=== PATIENT | male | born 1940 | race Two or more races ===

== ENCOUNTER 2022-07-10 19:51 | Inpatient (IN) | payer MEDICARE, OTHER ==
[~2022-07-10] VITALS: Ht 175.3 cm; Wt 59.0 kg
[2022-07-10 21:00] VITALS: BP 156/76
[2022-07-10] MEDS ORDERED: MELA3TAB41 PO (21:53)
[2022-07-10] MEDS ORDERED: PANT40TA2 PO (21:53)
[2022-07-10] MEDS ORDERED: FOLI1TAB94 PO (21:53)
[2022-07-10] MEDS ORDERED: BUPR100T5 PO (21:53)
[2022-07-10] MEDS ORDERED: CYAN1TAB17 PO (21:53)
[2022-07-10] MEDS ORDERED: TRAM50TA2 PO (21:53)
[2022-07-10] MEDS ORDERED: MAGN400T26 PO (21:53)
[2022-07-10] MEDS ORDERED: LEVO100T10 PO (21:53)
[2022-07-10] MEDS ORDERED: TUMERIC PO (21:53)
[2022-07-10] MEDS ORDERED: FINA5TAB3 PO (21:53)
[2022-07-10] MEDS ORDERED: TRAZ-182 PO (21:53)
[2022-07-10] MEDS ORDERED: PROB500T9 PO (21:53)
[2022-07-10] MEDS ORDERED: ENOX40DI SQ (21:53)
[2022-07-10] MEDS ORDERED: TERA5CAP4 PO (21:53)
[2022-07-10] MEDS ORDERED: [UNRECOGNIZED DRUG - CODE] PO (21:53)
[2022-07-10] MEDS ORDERED: CYAN-51 PO (21:53)
[2022-07-10] MEDS ORDERED: LEVE500T20 PO (21:53)
[2022-07-11 04:00] VITALS: BP 152/66
[2022-07-11 05:00] VITALS: BP 152/66
[2022-07-11] MEDS: LEVOTHYROXINE SODIUM 100 MCG TABLET PO SCH (05:50)
[2022-07-11] MEDS: PANTOPRAZOLE SODIUM 40 MG TABLET.DR PO SCH (06:05)
[2022-07-11 07:37] VITALS: BP 133/64
[2022-07-11] MEDS ORDERED: CYANOCOBALAMIN PO SCH (09:00)
[2022-07-11] MEDS ORDERED: TERAZOSIN 5 MG CAPSULE PO SCH (09:00)
[2022-07-11] MEDS ORDERED: PYRIDOXINE PO SCH (09:00)
[2022-07-11] MEDS ORDERED: buPROPion SR 100 MG TABLET.SA PO SCH ×2 (09:00)
[2022-07-11] MEDS ORDERED: [UNRECOGNIZED DRUG - OTHER] PO SCH (09:00)
[2022-07-11] MEDS ORDERED: PROBENECID 500 MG TABLET PO SCH ×2 (09:00)
[2022-07-11] MEDS: CYANOCOBALAMIN 1,000 MCG TABLET PO SCH (09:27)
[2022-07-11] MEDS: FINASTERIDE 5 MG TABLET PO SCH (09:28)
[2022-07-11] MEDS: FOLIC ACID 1 MG TABLET PO SCH (09:28)
[2022-07-11] MEDS: MAGNESIUM OXIDE 400 MG TABLET PO SCH (09:28)
[2022-07-11] MEDS: levETIRAcetam 500 MG TABLET PO SCH ×3 (09:28→16:24)
[2022-07-11] MEDS: CALCIUM CARB/VITAMIN D 600-400 MG TABLET PO SCH (09:28)
[2022-07-11] MEDS: ENOXAPARIN SODIUM 40 MG/0.4 ML DISP.SYRIN SQ SCH (09:29)
[2022-07-11] MEDS: TRAMADOL HCL 50 MG TABLET PO PRN (12:13)
[2022-07-11] MEDS ORDERED: BUPR100T13 PO (13:33)
[2022-07-11] MEDS: TERAZOSIN 5 MG CAPSULE PO SCH (14:21)
[2022-07-11 15:06] VITALS: BP 133/79
[2022-07-11] MEDS: buPROPion 100 MG TABLET PO SCH (16:24)
[2022-07-11 20:00] VITALS: BP 133/57
[2022-07-11] MEDS: MELATONIN 3 MG TABLET PO SCH (20:20)
[2022-07-11] MEDS: TRAZODONE 50 MG TABLET PO SCH (20:20)
[2022-07-11] MEDS ORDERED: TRAZODONE 50 MG TABLET PO SCH (21:00)
[2022-07-12 04:00] VITALS: BP 155/68
[2022-07-12] MEDS: LEVOTHYROXINE SODIUM 100 MCG TABLET PO SCH (06:07)
[2022-07-12] MEDS: PANTOPRAZOLE SODIUM 40 MG TABLET.DR PO SCH (06:08)
[2022-07-12 07:33] VITALS: BP 138/74
[2022-07-12 07:56] LABS: HEMATOCRIT 27.3 % (36.7-47.1); MEAN CORPUSCULAR HEMOGLOBIN 34.1 uug (23.8-33.4); MEAN CORPUSCULAR VOLUME 98.2 fL (73.0-96.2); PLATELET COUNT (AUTO) 263 K/uL (152-348)
[2022-07-12 08:12] LABS: THYROID STIMULATING HORMONE 1.073 mIU/mL (0.358-3.740)
[2022-07-12 08:27] LABS: BILIRUBIN,TOTAL 0.5 mg/dL (0.2-1.0); CREATININE 0.8 mg/dL (0.6-1.3); MAGNESIUM 1.8 mg/dL (1.8-2.4); PHOSPHOROUS 4.1 mg/dL (2.5-4.9); POTASSIUM 4.3 mmol/L (3.5-5.1); TOTAL PROTEIN, SERUM 6.4 g/dL (6.4-8.2)
[2022-07-12] MEDS: CYANOCOBALAMIN 1,000 MCG TABLET PO SCH (09:15)
[2022-07-12] MEDS: TERAZOSIN 5 MG CAPSULE PO SCH (09:15)
[2022-07-12] MEDS: FOLIC ACID 1 MG TABLET PO SCH (09:15)
[2022-07-12] MEDS: levETIRAcetam 500 MG TABLET PO SCH ×3 (09:23→16:31)
[2022-07-12] MEDS: CALCIUM CARB/VITAMIN D 600-400 MG TABLET PO SCH (09:23)
[2022-07-12] MEDS: MAGNESIUM OXIDE 400 MG TABLET PO SCH (09:24)
[2022-07-12] MEDS: FINASTERIDE 5 MG TABLET PO SCH (09:24)
[2022-07-12] MEDS: buPROPion 100 MG TABLET PO SCH ×2 (09:24→16:31)
[2022-07-12] MEDS: ENOXAPARIN SODIUM 40 MG/0.4 ML DISP.SYRIN SQ SCH (09:25)
[2022-07-12 15:04] VITALS: BP 119/59
[2022-07-12 20:00] VITALS: BP 105/56
[2022-07-12] MEDS: MELATONIN 3 MG TABLET PO SCH (20:28)
[2022-07-12] MEDS: TRAZODONE 50 MG TABLET PO SCH (20:28)
[2022-07-13] MEDS: TRAMADOL HCL 50 MG TABLET PO PRN ×2 (02:29→09:38)
[2022-07-13 04:33] VITALS: BP 111/59
[2022-07-13] MEDS: LEVOTHYROXINE SODIUM 100 MCG TABLET PO SCH (05:22)
[2022-07-13] MEDS: PANTOPRAZOLE SODIUM 40 MG TABLET.DR PO SCH (06:12)
[2022-07-13 07:31] VITALS: BP 149/65
[2022-07-13] MEDS: CALCIUM CARB/VITAMIN D 600-400 MG TABLET PO SCH (09:54)
[2022-07-13] MEDS: TERAZOSIN 5 MG CAPSULE PO SCH (09:54)
[2022-07-13] MEDS: MAGNESIUM OXIDE 400 MG TABLET PO SCH (09:54)
[2022-07-13] MEDS: FINASTERIDE 5 MG TABLET PO SCH (09:54)
[2022-07-13] MEDS: levETIRAcetam 500 MG TABLET PO SCH ×3 (09:54→16:46)
[2022-07-13] MEDS: FOLIC ACID 1 MG TABLET PO SCH (09:54)
[2022-07-13] MEDS: CYANOCOBALAMIN 1,000 MCG TABLET PO SCH (09:54)
[2022-07-13] MEDS: buPROPion 100 MG TABLET PO SCH ×2 (09:55→16:46)
[2022-07-13] MEDS: ENOXAPARIN SODIUM 40 MG/0.4 ML DISP.SYRIN SQ SCH (09:57)
[2022-07-13 15:03] VITALS: BP 146/68
[2022-07-13] MEDS: ENSURE ENLIVE (VAN) 240 ML LIQUID PO SCH (16:46)
[2022-07-13] MEDS: TRAZODONE 50 MG TABLET PO SCH (20:54)
[2022-07-13] MEDS: MELATONIN 3 MG TABLET PO SCH (20:54)
[2022-07-13 20:56] VITALS: BP 118/65
[2022-07-14 04:00] VITALS: BP 142/82
[2022-07-14] MEDS: LEVOTHYROXINE SODIUM 100 MCG TABLET PO SCH (06:05)
[2022-07-14] MEDS: PANTOPRAZOLE SODIUM 40 MG TABLET.DR PO SCH (06:05)
[2022-07-14 07:53] LABS: *BILIRUBIN,URIN NEGATIVE (NEGATIVE); *BLOOD, URINE 1+ (NEGATIVE); *CLARITY,URINE TURBID (CLEAR); *COLOR,URINE YELLOW (YELLOW); *KETONES,URINE NEGATIVE (NEGATIVE); LEUKOCYTE ESTERASE ,URINE 3+ (NEGATIVE); NITRITE, URINE POSITIVE (NEGATIVE); PH,URINE >=9.0 (5.0-8.0); UGLUCOSE NEGATIVE (NEGATIVE)
[2022-07-14 08:00] VITALS: BP 134/69
[2022-07-14] MEDS: levETIRAcetam 500 MG TABLET PO SCH ×3 (08:02→16:21)
[2022-07-14] MEDS: FINASTERIDE 5 MG TABLET PO SCH (08:03)
[2022-07-14] MEDS: CYANOCOBALAMIN 1,000 MCG TABLET PO SCH (08:03)
[2022-07-14] MEDS: ENSURE ENLIVE (VAN) 240 ML LIQUID PO SCH ×2 (08:03→16:21)
[2022-07-14] MEDS: CALCIUM CARB/VITAMIN D 600-400 MG TABLET PO SCH (08:03)
[2022-07-14] MEDS: TERAZOSIN 5 MG CAPSULE PO SCH (08:03)
[2022-07-14] MEDS: MAGNESIUM OXIDE 400 MG TABLET PO SCH (08:03)
[2022-07-14] MEDS: FOLIC ACID 1 MG TABLET PO SCH (08:03)
[2022-07-14] MEDS: PROTEIN SUPPLEMENT (PROSTAT) 30 ML LIQUID PO SCH (08:03)
[2022-07-14] MEDS: ENOXAPARIN SODIUM 40 MG/0.4 ML DISP.SYRIN SQ SCH (08:04)
[2022-07-14] MEDS: buPROPion 100 MG TABLET PO SCH ×2 (08:12→16:21)
[2022-07-14 08:35] LABS: WBC,URINE 80-100 /HPF (0-3)
[2022-07-14 08:36] LABS: BACTERIA,URINE MANY /HPF (NONE SEEN); MUCUS,URINE FEW /LPF (0-FEW); RBC,URINE 50-80 /HPF (0-3); SQUAMOUS EPITHELIAL CELL,UR NONE SEEN /HPF (NONE SEEN)
[2022-07-14 08:58] LABS: URINE AMORPHOUS PHOSPHATES MANY /HPF
[2022-07-14 08:59] LABS: TRIPLE PHOSPHATE CRYSTAL,UR MANY /HPF (NONE SEEN)
[2022-07-14 09:08] LABS: CALCIUM CARBONATE CRYSTALS,UR MODERATE /HPF (NONE SEEN)
[2022-07-14 11:43] VITALS: BP 112/52
[2022-07-14 16:53] VITALS: BP 110/62
[2022-07-14] MEDS: CEFTRIAXONE 1 G in IV DEXTROSE 5% 50 ML IV SCH (17:13)
[2022-07-14 20:01] VITALS: BP 124/64
[2022-07-14] MEDS: MELATONIN 3 MG TABLET PO SCH (20:19)
[2022-07-14] MEDS: TRAZODONE 50 MG TABLET PO SCH (20:19)
[2022-07-15 04:36] VITALS: BP 133/67
[2022-07-15] MEDS: LEVOTHYROXINE SODIUM 100 MCG TABLET PO SCH (05:38)
[2022-07-15] MEDS: PANTOPRAZOLE SODIUM 40 MG TABLET.DR PO SCH (06:02)
[2022-07-15 07:30] VITALS: BP 124/67
[2022-07-15 07:31] VITALS: BP 115/55
[2022-07-15] MEDS: TERAZOSIN 5 MG CAPSULE PO SCH (08:23)
[2022-07-15] MEDS: FINASTERIDE 5 MG TABLET PO SCH (08:23)
[2022-07-15] MEDS: FOLIC ACID 1 MG TABLET PO SCH (08:23)
[2022-07-15] MEDS: levETIRAcetam 500 MG TABLET PO SCH ×3 (08:24→16:32)
[2022-07-15] MEDS: buPROPion 100 MG TABLET PO SCH ×2 (08:24→16:33)
[2022-07-15] MEDS: CALCIUM CARB/VITAMIN D 600-400 MG TABLET PO SCH (08:24)
[2022-07-15] MEDS: MAGNESIUM OXIDE 400 MG TABLET PO SCH (08:24)
[2022-07-15] MEDS: ENOXAPARIN SODIUM 40 MG/0.4 ML DISP.SYRIN SQ SCH (08:25)
[2022-07-15] MEDS: CYANOCOBALAMIN 1,000 MCG TABLET PO SCH (08:28)
[2022-07-15] MEDS: ENSURE ENLIVE (VAN) 240 ML LIQUID PO SCH ×2 (08:29→17:14)
[2022-07-15] MEDS: PROTEIN SUPPLEMENT (PROSTAT) 30 ML LIQUID PO SCH (08:29)
[2022-07-15] MEDS ORDERED: REMEDY ESSENTIAL ZINC PASTE 113 GM TOP PRN (11:00)
[2022-07-15 16:00] VITALS: BP 109/62
[2022-07-15] MEDS: CEFTRIAXONE 1 G in IV DEXTROSE 5% 50 ML IV SCH (18:14)
[2022-07-15 20:00] VITALS: BP 136/61
[2022-07-15] MEDS: TRAZODONE 50 MG TABLET PO SCH (20:01)
[2022-07-15] MEDS: MELATONIN 3 MG TABLET PO SCH (20:01)
[2022-07-15] MEDS: REMEDY ESSENTIAL ZINC PASTE 113 GM TOP SCH (20:01)
[2022-07-16 04:00] VITALS: BP 127/64
[2022-07-16] MEDS: LEVOTHYROXINE SODIUM 100 MCG TABLET PO SCH (05:01)
[2022-07-16] MEDS: PANTOPRAZOLE SODIUM 40 MG TABLET.DR PO SCH (06:01)
[2022-07-16 07:43] VITALS: BP 136/81
[2022-07-16] MEDS: ENSURE ENLIVE (VAN) 240 ML LIQUID PO SCH ×2 (08:56→16:58)
[2022-07-16] MEDS: PROTEIN SUPPLEMENT (PROSTAT) 30 ML LIQUID PO SCH (08:57)
[2022-07-16] MEDS: CYANOCOBALAMIN 1,000 MCG TABLET PO SCH (09:21)
[2022-07-16] MEDS: FINASTERIDE 5 MG TABLET PO SCH (09:21)
[2022-07-16] MEDS: CALCIUM CARB/VITAMIN D 600-400 MG TABLET PO SCH (09:22)
[2022-07-16] MEDS: MAGNESIUM OXIDE 400 MG TABLET PO SCH (09:22)
[2022-07-16] MEDS: levETIRAcetam 500 MG TABLET PO SCH ×3 (09:22→16:57)
[2022-07-16] MEDS: REMEDY ESSENTIAL ZINC PASTE 113 GM TOP SCH ×2 (09:23→21:10)
[2022-07-16] MEDS: ENOXAPARIN SODIUM 40 MG/0.4 ML DISP.SYRIN SQ SCH (09:27)
[2022-07-16] MEDS: FOLIC ACID 1 MG TABLET PO SCH (09:28)
[2022-07-16] MEDS: buPROPion 100 MG TABLET PO SCH ×2 (09:34→16:57)
[2022-07-16 16:39] VITALS: BP 129/66
[2022-07-16] MEDS: CEFTRIAXONE 1 G in IV DEXTROSE 5% 50 ML IV SCH (18:09)
[2022-07-16 20:00] VITALS: BP 121/72
[2022-07-16] MEDS: TRAZODONE 50 MG TABLET PO SCH (21:09)
[2022-07-16] MEDS: TERAZOSIN 5 MG CAPSULE PO SCH (21:10)
[2022-07-16] MEDS: MELATONIN 3 MG TABLET PO SCH (21:10)
[2022-07-17 04:00] VITALS: BP 125/62
[2022-07-17] MEDS: LEVOTHYROXINE SODIUM 100 MCG TABLET PO SCH (05:41)
[2022-07-17] MEDS: PANTOPRAZOLE SODIUM 40 MG TABLET.DR PO SCH (06:11)
[2022-07-17 07:45] VITALS: BP 116/62
[2022-07-17] MEDS: PROTEIN SUPPLEMENT (PROSTAT) 30 ML LIQUID PO SCH (08:25)
[2022-07-17] MEDS: FOLIC ACID 1 MG TABLET PO SCH (08:25)
[2022-07-17] MEDS: levETIRAcetam 500 MG TABLET PO SCH ×3 (08:25→17:37)
[2022-07-17] MEDS: MAGNESIUM OXIDE 400 MG TABLET PO SCH (08:25)
[2022-07-17] MEDS: CALCIUM CARB/VITAMIN D 600-400 MG TABLET PO SCH (08:25)
[2022-07-17] MEDS: FINASTERIDE 5 MG TABLET PO SCH (08:25)
[2022-07-17] MEDS: ENSURE ENLIVE (VAN) 240 ML LIQUID PO SCH ×2 (08:25→17:42)
[2022-07-17] MEDS: buPROPion 100 MG TABLET PO SCH ×2 (08:25→17:37)
[2022-07-17] MEDS: CYANOCOBALAMIN 1,000 MCG TABLET PO SCH (08:25)
[2022-07-17] MEDS: ENOXAPARIN SODIUM 40 MG/0.4 ML DISP.SYRIN SQ SCH (08:27)
[2022-07-17] MEDS: REMEDY ESSENTIAL ZINC PASTE 113 GM TOP SCH ×2 (09:13→21:07)
[2022-07-17 15:46] VITALS: BP 117/67
[2022-07-17] MEDS: CEFTRIAXONE 1 G in IV DEXTROSE 5% 50 ML IV SCH (18:08)
[2022-07-17 20:00] VITALS: BP 132/67
[2022-07-17] MEDS: TRAZODONE 50 MG TABLET PO SCH (21:06)
[2022-07-17] MEDS: MELATONIN 3 MG TABLET PO SCH (21:07)
[2022-07-17] MEDS: TERAZOSIN 5 MG CAPSULE PO SCH (21:07)
[2022-07-18 04:00] VITALS: BP 145/67
[2022-07-18] MEDS: LEVOTHYROXINE SODIUM 100 MCG TABLET PO SCH (06:01)
[2022-07-18] MEDS: PANTOPRAZOLE SODIUM 40 MG TABLET.DR PO SCH (06:01)
[2022-07-18 07:58] VITALS: BP 113/63
[2022-07-18] MEDS: CYANOCOBALAMIN 1,000 MCG TABLET PO SCH (09:25)
[2022-07-18] MEDS: FINASTERIDE 5 MG TABLET PO SCH (09:25)
[2022-07-18] MEDS: MAGNESIUM OXIDE 400 MG TABLET PO SCH (09:25)
[2022-07-18] MEDS: FOLIC ACID 1 MG TABLET PO SCH (09:25)
[2022-07-18] MEDS: levETIRAcetam 500 MG TABLET PO SCH ×3 (09:26→17:02)
[2022-07-18] MEDS: buPROPion 100 MG TABLET PO SCH ×2 (09:26→17:02)
[2022-07-18] MEDS: CALCIUM CARB/VITAMIN D 600-400 MG TABLET PO SCH (09:26)
[2022-07-18] MEDS: ENOXAPARIN SODIUM 40 MG/0.4 ML DISP.SYRIN SQ SCH (09:28)
[2022-07-18] MEDS: ENSURE ENLIVE (VAN) 240 ML LIQUID PO SCH ×2 (09:44→17:02)
[2022-07-18] MEDS: REMEDY ESSENTIAL ZINC PASTE 113 GM TOP SCH ×2 (09:45→20:46)
[2022-07-18] MEDS: PROTEIN SUPPLEMENT (PROSTAT) 30 ML LIQUID PO SCH (09:45)
[2022-07-18 16:31] VITALS: BP 136/66
[2022-07-18] MEDS: CEFTRIAXONE 1 G in IV DEXTROSE 5% 50 ML IV SCH (17:02)
[2022-07-18 20:00] VITALS: BP 127/50
[2022-07-18] MEDS: TERAZOSIN 5 MG CAPSULE PO SCH (20:39)
[2022-07-18] MEDS: TRAZODONE 50 MG TABLET PO SCH (20:40)
[2022-07-18] MEDS: MELATONIN 3 MG TABLET PO SCH (20:42)
[2022-07-19 04:00] VITALS: BP 135/63
[2022-07-19] MEDS: LEVOTHYROXINE SODIUM 100 MCG TABLET PO SCH (06:19)
[2022-07-19] MEDS: PANTOPRAZOLE SODIUM 40 MG TABLET.DR PO SCH (06:19)
[2022-07-19 08:07] VITALS: BP 128/68
[2022-07-19] MEDS: ENSURE ENLIVE (VAN) 240 ML LIQUID PO SCH ×2 (08:08→14:57)
[2022-07-19] MEDS: PROTEIN SUPPLEMENT (PROSTAT) 30 ML LIQUID PO SCH (08:08)
[2022-07-19] MEDS: FINASTERIDE 5 MG TABLET PO SCH (08:08)
[2022-07-19] MEDS: CALCIUM CARB/VITAMIN D 600-400 MG TABLET PO SCH (08:08)
[2022-07-19] MEDS: MAGNESIUM OXIDE 400 MG TABLET PO SCH (08:09)
[2022-07-19] MEDS: buPROPion 100 MG TABLET PO SCH ×2 (08:09→16:08)
[2022-07-19] MEDS: FOLIC ACID 1 MG TABLET PO SCH (08:09)
[2022-07-19] MEDS: levETIRAcetam 500 MG TABLET PO SCH ×3 (08:09→16:08)
[2022-07-19] MEDS: CYANOCOBALAMIN 1,000 MCG TABLET PO SCH (08:09)
[2022-07-19] MEDS: REMEDY ESSENTIAL ZINC PASTE 113 GM TOP SCH ×2 (08:09→21:00)
[2022-07-19] MEDS: ENOXAPARIN SODIUM 40 MG/0.4 ML DISP.SYRIN SQ SCH (08:10)
[2022-07-19 16:00] VITALS: BP_SYST 120; BP_SYST 125; BP_DIAS 48; BP_DIAS 64
[2022-07-19] MEDS: CEFTRIAXONE 1 G in IV DEXTROSE 5% 50 ML IV SCH (17:05)
[2022-07-19 20:00] VITALS: BP 123/61
[2022-07-19] MEDS: TERAZOSIN 5 MG CAPSULE PO SCH (21:00)
[2022-07-19] MEDS: MELATONIN 3 MG TABLET PO SCH (21:00)
[2022-07-19] MEDS: TRAZODONE 50 MG TABLET PO SCH (22:41)
[2022-07-20] MEDS: TRAMADOL HCL 50 MG TABLET PO PRN (03:35)
[2022-07-20 04:20] VITALS: BP 143/68
[2022-07-20] MEDS: LEVOTHYROXINE SODIUM 100 MCG TABLET PO SCH (06:00)
[2022-07-20] MEDS: PANTOPRAZOLE SODIUM 40 MG TABLET.DR PO SCH (07:27)
[2022-07-20 07:45] VITALS: BP 122/62
[2022-07-20] MEDS: FINASTERIDE 5 MG TABLET PO SCH (08:52)
[2022-07-20] MEDS: levETIRAcetam 500 MG TABLET PO SCH ×3 (08:53→16:10)
[2022-07-20] MEDS: FOLIC ACID 1 MG TABLET PO SCH (08:53)
[2022-07-20] MEDS: CALCIUM CARB/VITAMIN D 600-400 MG TABLET PO SCH (08:53)
[2022-07-20] MEDS: CYANOCOBALAMIN 1,000 MCG TABLET PO SCH (08:55)
[2022-07-20] MEDS: ENOXAPARIN SODIUM 40 MG/0.4 ML DISP.SYRIN SQ SCH (08:57)
[2022-07-20] MEDS: MAGNESIUM OXIDE 400 MG TABLET PO SCH (08:59)
[2022-07-20] MEDS: ENSURE ENLIVE (VAN) 240 ML LIQUID PO SCH ×2 (09:00→16:11)
[2022-07-20] MEDS: REMEDY ESSENTIAL ZINC PASTE 113 GM TOP SCH ×2 (09:00→21:06)
[2022-07-20] MEDS: PROTEIN SUPPLEMENT (PROSTAT) 30 ML LIQUID PO SCH (09:00)
[2022-07-20] MEDS: buPROPion 100 MG TABLET PO SCH ×2 (09:02→16:10)
[2022-07-20 16:48] VITALS: BP 107/53
[2022-07-20] MEDS ORDERED: IV NORMAL SALINE 1000 ML BAG IV ONE ×2 (17:15)
[2022-07-20] MEDS: CEFTRIAXONE 1 G in IV DEXTROSE 5% 50 ML IV SCH (17:54)
[2022-07-20 21:00] VITALS: BP 110/58
[2022-07-20] MEDS: MELATONIN 3 MG TABLET PO SCH (21:06)
[2022-07-20] MEDS: TRAZODONE 50 MG TABLET PO SCH (21:07)
[2022-07-20] MEDS: TERAZOSIN 5 MG CAPSULE PO SCH (21:07)
[2022-07-21 04:31] VITALS: BP 128/71
[2022-07-21] MEDS: LEVOTHYROXINE SODIUM 100 MCG TABLET PO SCH (05:34)
[2022-07-21] MEDS: PANTOPRAZOLE SODIUM 40 MG TABLET.DR PO SCH (06:20)
[2022-07-21 07:05] LABS: HEMATOCRIT 30.6 % (36.7-47.1); MEAN CORPUSCULAR HEMOGLOBIN 34.3 uug (23.8-33.4); MEAN CORPUSCULAR VOLUME 98.6 fL (73.0-96.2); PLATELET COUNT (AUTO) 320 K/uL (152-348)
[2022-07-21 07:25] LABS: CREATININE 0.8 mg/dL (0.6-1.3); MAGNESIUM 1.9 mg/dL (1.8-2.4); PHOSPHOROUS 3.5 mg/dL (2.5-4.9); POTASSIUM 4.2 mmol/L (3.5-5.1)
[2022-07-21 07:40] VITALS: BP 122/65
[2022-07-21] MEDS: ENOXAPARIN SODIUM 40 MG/0.4 ML DISP.SYRIN SQ SCH (08:13)
[2022-07-21] MEDS: buPROPion 100 MG TABLET PO SCH ×2 (08:13→16:25)
[2022-07-21] MEDS: CYANOCOBALAMIN 1,000 MCG TABLET PO SCH (08:13)
[2022-07-21] MEDS: CALCIUM CARB/VITAMIN D 600-400 MG TABLET PO SCH (08:13)
[2022-07-21] MEDS: FOLIC ACID 1 MG TABLET PO SCH (08:14)
[2022-07-21] MEDS: levETIRAcetam 500 MG TABLET PO SCH ×3 (08:14→16:23)
[2022-07-21] MEDS: MAGNESIUM OXIDE 400 MG TABLET PO SCH (08:14)
[2022-07-21] MEDS: PROTEIN SUPPLEMENT (PROSTAT) 30 ML LIQUID PO SCH (08:14)
[2022-07-21] MEDS: FINASTERIDE 5 MG TABLET PO SCH (08:14)
[2022-07-21] MEDS: ENSURE ENLIVE (VAN) 240 ML LIQUID PO SCH ×2 (08:14→16:23)
[2022-07-21] MEDS: REMEDY ESSENTIAL ZINC PASTE 113 GM TOP SCH ×2 (08:25→20:10)
[2022-07-21 16:51] VITALS: BP 167/80
[2022-07-21 20:00] VITALS: BP 113/60
[2022-07-21] MEDS: MELATONIN 3 MG TABLET PO SCH (20:10)
[2022-07-21] MEDS: TRAZODONE 50 MG TABLET PO SCH (20:11)
[2022-07-21] MEDS: TERAZOSIN 5 MG CAPSULE PO SCH (21:20)
[2022-07-22 04:00] VITALS: BP 142/75
[2022-07-22] MEDS: LEVOTHYROXINE SODIUM 100 MCG TABLET PO SCH (05:23)
[2022-07-22] MEDS: PANTOPRAZOLE SODIUM 40 MG TABLET.DR PO SCH (06:11)
[2022-07-22 07:41] VITALS: BP 147/75
[2022-07-22] MEDS: MAGNESIUM OXIDE 400 MG TABLET PO SCH (08:15)
[2022-07-22] MEDS: CYANOCOBALAMIN 1,000 MCG TABLET PO SCH (08:15)
[2022-07-22] MEDS: FINASTERIDE 5 MG TABLET PO SCH (08:15)
[2022-07-22] MEDS: FOLIC ACID 1 MG TABLET PO SCH (08:15)
[2022-07-22] MEDS: levETIRAcetam 500 MG TABLET PO SCH ×3 (08:15→16:12)
[2022-07-22] MEDS: CALCIUM CARB/VITAMIN D 600-400 MG TABLET PO SCH (08:15)
[2022-07-22] MEDS: PROTEIN SUPPLEMENT (PROSTAT) 30 ML LIQUID PO SCH (08:15)
[2022-07-22] MEDS: ENSURE ENLIVE (VAN) 240 ML LIQUID PO SCH ×2 (08:15→16:12)
[2022-07-22] MEDS: ENOXAPARIN SODIUM 40 MG/0.4 ML DISP.SYRIN SQ SCH (08:17)
[2022-07-22] MEDS: buPROPion 100 MG TABLET PO SCH ×2 (08:17→16:13)
[2022-07-22] MEDS: REMEDY ESSENTIAL ZINC PASTE 113 GM TOP SCH ×2 (08:18→20:00)
[2022-07-22 16:37] VITALS: BP 137/75
[2022-07-22 20:00] VITALS: BP 144/66
[2022-07-22] MEDS: TRAZODONE 50 MG TABLET PO SCH (20:00)
[2022-07-22] MEDS: MELATONIN 3 MG TABLET PO SCH (20:00)
[2022-07-22] MEDS: TERAZOSIN 5 MG CAPSULE PO SCH (20:00)
[2022-07-23 04:00] VITALS: BP 115/63
[2022-07-23] MEDS: LEVOTHYROXINE SODIUM 100 MCG TABLET PO SCH (06:02)
[2022-07-23] MEDS: PANTOPRAZOLE SODIUM 40 MG TABLET.DR PO SCH (06:02)
[2022-07-23 06:35] LABS: CREATININE 0.9 mg/dL (0.6-1.3); POTASSIUM 4.4 mmol/L (3.5-5.1)
[2022-07-23 07:48] VITALS: BP 125/68
[2022-07-23] MEDS: ENSURE ENLIVE (VAN) 240 ML LIQUID PO SCH ×2 (08:00→16:55)
[2022-07-23] MEDS: PROTEIN SUPPLEMENT (PROSTAT) 30 ML LIQUID PO SCH (08:00)
[2022-07-23] MEDS: levETIRAcetam 500 MG TABLET PO SCH ×3 (09:22→16:55)
[2022-07-23] MEDS: MAGNESIUM OXIDE 400 MG TABLET PO SCH (09:22)
[2022-07-23] MEDS: CALCIUM CARB/VITAMIN D 600-400 MG TABLET PO SCH (09:22)
[2022-07-23] MEDS: FOLIC ACID 1 MG TABLET PO SCH (09:22)
[2022-07-23] MEDS: FINASTERIDE 5 MG TABLET PO SCH (09:22)
[2022-07-23] MEDS: CYANOCOBALAMIN 1,000 MCG TABLET PO SCH (09:24)
[2022-07-23] MEDS: buPROPion 100 MG TABLET PO SCH ×2 (09:24→16:55)
[2022-07-23] MEDS: REMEDY ESSENTIAL ZINC PASTE 113 GM TOP SCH ×2 (09:25→20:31)
[2022-07-23] MEDS: ENOXAPARIN SODIUM 40 MG/0.4 ML DISP.SYRIN SQ SCH (09:25)
[2022-07-23 16:00] VITALS: BP 119/65
[2022-07-23] MEDS: MELATONIN 3 MG TABLET PO SCH (20:30)
[2022-07-23] MEDS: TRAZODONE 50 MG TABLET PO SCH (20:30)
[2022-07-23] MEDS: TERAZOSIN 5 MG CAPSULE PO SCH (20:31)
[2022-07-23 20:48] VITALS: BP 124/67
[2022-07-24 04:15] VITALS: BP 130/74
[2022-07-24] MEDS: LEVOTHYROXINE SODIUM 100 MCG TABLET PO SCH (05:49)
[2022-07-24] MEDS: PANTOPRAZOLE SODIUM 40 MG TABLET.DR PO SCH (06:01)
[2022-07-24 08:00] VITALS: BP 119/68
[2022-07-24] MEDS: PROTEIN SUPPLEMENT (PROSTAT) 30 ML LIQUID PO SCH (08:00)
[2022-07-24] MEDS: CYANOCOBALAMIN 1,000 MCG TABLET PO SCH (09:03)
[2022-07-24] MEDS: CALCIUM CARB/VITAMIN D 600-400 MG TABLET PO SCH (09:03)
[2022-07-24] MEDS: FOLIC ACID 1 MG TABLET PO SCH (09:03)
[2022-07-24] MEDS: FINASTERIDE 5 MG TABLET PO SCH (09:04)
[2022-07-24] MEDS: levETIRAcetam 500 MG TABLET PO SCH ×3 (09:04→17:58)
[2022-07-24] MEDS: REMEDY ESSENTIAL ZINC PASTE 113 GM TOP SCH ×2 (09:05→20:39)
[2022-07-24] MEDS: ENSURE ENLIVE (VAN) 240 ML LIQUID PO SCH ×2 (09:06→17:59)
[2022-07-24] MEDS: ENOXAPARIN SODIUM 40 MG/0.4 ML DISP.SYRIN SQ SCH (09:07)
[2022-07-24] MEDS: buPROPion 100 MG TABLET PO SCH ×2 (09:13→17:58)
[2022-07-24] MEDS: MAGNESIUM OXIDE 400 MG TABLET PO SCH (09:14)
[2022-07-24 16:00] VITALS: BP 114/58
[2022-07-24 20:00] VITALS: BP 134/70
[2022-07-24] MEDS: TRAZODONE 50 MG TABLET PO SCH (20:35)
[2022-07-24] MEDS: TERAZOSIN 5 MG CAPSULE PO SCH (20:35)
[2022-07-24] MEDS: MELATONIN 3 MG TABLET PO SCH (20:37)
[2022-07-25 04:37] VITALS: BP 113/62
[2022-07-25] MEDS: LEVOTHYROXINE SODIUM 100 MCG TABLET PO SCH (06:01)
[2022-07-25] MEDS: PANTOPRAZOLE SODIUM 40 MG TABLET.DR PO SCH (06:24)
[2022-07-25 07:30] VITALS: BP 121/66
[2022-07-25] MEDS: ENSURE ENLIVE (VAN) 240 ML LIQUID PO SCH ×2 (08:24→17:05)
[2022-07-25] MEDS: PROTEIN SUPPLEMENT (PROSTAT) 30 ML LIQUID PO SCH (08:25)
[2022-07-25] MEDS: TRAMADOL HCL 50 MG TABLET PO PRN (08:26)
[2022-07-25] MEDS: CALCIUM CARB/VITAMIN D 600-400 MG TABLET PO SCH (08:27)
[2022-07-25] MEDS: CYANOCOBALAMIN 1,000 MCG TABLET PO SCH (08:27)
[2022-07-25] MEDS: MAGNESIUM OXIDE 400 MG TABLET PO SCH (08:27)
[2022-07-25] MEDS: FOLIC ACID 1 MG TABLET PO SCH (08:27)
[2022-07-25] MEDS: levETIRAcetam 500 MG TABLET PO SCH ×3 (08:27→17:04)
[2022-07-25] MEDS: FINASTERIDE 5 MG TABLET PO SCH (08:27)
[2022-07-25] MEDS: ENOXAPARIN SODIUM 40 MG/0.4 ML DISP.SYRIN SQ SCH (08:28)
[2022-07-25] MEDS: buPROPion 100 MG TABLET PO SCH ×2 (08:28→17:05)
[2022-07-25] MEDS: REMEDY ESSENTIAL ZINC PASTE 113 GM TOP SCH ×2 (08:31→21:24)
[2022-07-25 16:00] VITALS: BP 120/62
[2022-07-25 20:00] VITALS: BP 125/52
[2022-07-25] MEDS: TRAZODONE 50 MG TABLET PO SCH (20:09)
[2022-07-25] MEDS: TERAZOSIN 5 MG CAPSULE PO SCH (20:10)
[2022-07-25] MEDS: MELATONIN 3 MG TABLET PO SCH (20:11)
[2022-07-26 04:00] VITALS: BP 128/55
[2022-07-26] MEDS: PANTOPRAZOLE SODIUM 40 MG TABLET.DR PO SCH (06:06)
[2022-07-26] MEDS: LEVOTHYROXINE SODIUM 100 MCG TABLET PO SCH (06:06)
[2022-07-26 07:41] VITALS: BP 136/69
[2022-07-26] MEDS: levETIRAcetam 500 MG TABLET PO SCH ×3 (10:24→16:46)
[2022-07-26] MEDS: MAGNESIUM OXIDE 400 MG TABLET PO SCH (10:24)
[2022-07-26] MEDS: CALCIUM CARB/VITAMIN D 600-400 MG TABLET PO SCH (10:24)
[2022-07-26] MEDS: FOLIC ACID 1 MG TABLET PO SCH (10:24)
[2022-07-26] MEDS: CYANOCOBALAMIN 1,000 MCG TABLET PO SCH (10:24)
[2022-07-26] MEDS: FINASTERIDE 5 MG TABLET PO SCH (10:25)
[2022-07-26] MEDS: REMEDY ESSENTIAL ZINC PASTE 113 GM TOP SCH ×2 (10:25→20:20)
[2022-07-26] MEDS: buPROPion 100 MG TABLET PO SCH ×2 (10:26→16:46)
[2022-07-26] MEDS: PROTEIN SUPPLEMENT (PROSTAT) 30 ML LIQUID PO SCH (10:26)
[2022-07-26] MEDS: ENSURE ENLIVE (VAN) 240 ML LIQUID PO SCH ×2 (10:26→16:47)
[2022-07-26] MEDS: ENOXAPARIN SODIUM 40 MG/0.4 ML DISP.SYRIN SQ SCH (10:27)
[2022-07-26] MEDS: TRAMADOL HCL 50 MG TABLET PO PRN (14:48)
[2022-07-26 16:01] VITALS: BP 115/64
[2022-07-26 20:00] VITALS: BP 119/63
[2022-07-26] MEDS: TERAZOSIN 5 MG CAPSULE PO SCH (20:19)
[2022-07-26] MEDS: MELATONIN 3 MG TABLET PO SCH (20:20)
[2022-07-26] MEDS: TRAZODONE 50 MG TABLET PO SCH (20:20)
[2022-07-27 04:00] VITALS: BP 106/59
[2022-07-27] MEDS: LEVOTHYROXINE SODIUM 100 MCG TABLET PO SCH (06:14)
[2022-07-27] MEDS: PANTOPRAZOLE SODIUM 40 MG TABLET.DR PO SCH (06:25)
[2022-07-27 08:00] VITALS: BP 128/65
[2022-07-27] MEDS: CALCIUM CARB/VITAMIN D 600-400 MG TABLET PO SCH (08:35)
[2022-07-27] MEDS: PROTEIN SUPPLEMENT (PROSTAT) 30 ML LIQUID PO SCH (08:36)
[2022-07-27] MEDS: MAGNESIUM OXIDE 400 MG TABLET PO SCH (08:36)
[2022-07-27] MEDS: FOLIC ACID 1 MG TABLET PO SCH (08:36)
[2022-07-27] MEDS: ENSURE ENLIVE (VAN) 240 ML LIQUID PO SCH ×2 (08:36→16:53)
[2022-07-27] MEDS: levETIRAcetam 500 MG TABLET PO SCH ×3 (08:36→16:52)
[2022-07-27] MEDS: FINASTERIDE 5 MG TABLET PO SCH (08:36)
[2022-07-27] MEDS: CYANOCOBALAMIN 1,000 MCG TABLET PO SCH (08:36)
[2022-07-27] MEDS: buPROPion 100 MG TABLET PO SCH ×2 (08:37→16:53)
[2022-07-27] MEDS: ENOXAPARIN SODIUM 40 MG/0.4 ML DISP.SYRIN SQ SCH (08:46)
[2022-07-27] MEDS: REMEDY ESSENTIAL ZINC PASTE 113 GM TOP SCH (08:46)
[2022-07-27 16:15] VITALS: BP 129/59
== END 2022-07-27 18:48 | disposition home health service (06) | DRG 559 ==
PROVIDERS: ADMIT Physical Medicine & Rehabilitation Pain Medicine; ATTEND Physical Medicine & Rehabilitation Pain Medicine
PROC: 05HA33Z Insertion of Infusion Device into Left Brachial Vein, Percutaneous Approach (ICD-10-PCS; principal; 2022-07-20)
DX: S72.142D Displaced intertrochanteric fracture of left femur, subsequent encounter for closed fracture with routine healing (principal); G93.41 Metabolic encephalopathy; D68.59 Other primary thrombophilia; F01.53 Vascular dementia, unspecified severity, with mood disturbance; N39.0 Urinary tract infection, site not specified; W05.0XXD Fall from non-moving wheelchair, subsequent encounter; I10 Essential (primary) hypertension; E03.9 Hypothyroidism, unspecified; G40.909 Epilepsy, unspecified, not intractable, without status epilepticus; D64.9 Anemia, unspecified; E86.0 Dehydration; I69.398 Other sequelae of cerebral infarction; G93.89 Other specified disorders of brain; N40.0 Benign prostatic hyperplasia without lower urinary tract symptoms; R79.89 Other specified abnormal findings of blood chemistry; K21.9 Gastro-esophageal reflux disease without esophagitis; R54 Age-related physical debility; F32.A Depression, unspecified
CPT/HCPCS: 36415; 73501; 83735; 84100; 84443; 85025; 87086; 97535-GO-CO; A4663; A6209; A6213; J0696; J1650; J7040; J8499